=== PATIENT | male | born 1970 | race Caucasian/White ===

== ENCOUNTER 2018-07-05 20:47 | Emergency (ER) | payer MEDICARE, OTHER ==
[~2018-07-05] VITALS: Ht 175.3 cm; Wt 72.6 kg
[2018-07-05 21:55] VITALS: BP 128/84
[2018-07-05] MEDS ORDERED: ACETAMINOPHEN 325 MG TAB PO ONE (22:30)
[2018-07-05] MEDS ORDERED: IBUPROFEN 600 MG TAB PO ONE (22:30)
== END 2018-07-05 23:35 | disposition home or self-care (01) ==
LOC: ER 20:53
DX: S62.394A Other fracture of fourth metacarpal bone, right hand, initial encounter for closed fracture (principal); W22.01XA Walked into wall, initial encounter; Y93.89 Activity, other specified; Y92.098 Other place in other non-institutional residence as the place of occurrence of the external cause; Y99.8 Other external cause status
CPT/HCPCS: 29125; 73130

== ENCOUNTER 2020-10-13 13:33 | Emergency (ER) | payer MEDICARE, OTHER ==
[~2020-10-13] VITALS: Ht 177.8 cm; Wt 63.5 kg
[2020-10-13] MEDS ORDERED: LORazepam 2MG/ML-1ML VIAL IV ONE (14:15)
[2020-10-13 14:18] LABS: Basophils # (auto) 0 10 ^3/uL (0-0.2); Basophils % (auto) 0.5 % (0.0-2.0); Eosinophils # (auto) 0 10 ^3/uL (0-0.8); Eosinophils % (auto) 0.5 % (0.0-7.0); Hematocrit 45.6 % (41.0-53.0); Hemoglobin 16.3 g/dL (13.5-17.5); Lymphocytes # (auto) 1.9 10 ^3/uL (0.4-5.4); Lymphocytes % (auto) 24.6 % (10.0-50.0); Mean Corpuscular Hemoglobin 33.4 pg (28.0-32.0); Mean Corpuscular Hgb Conc. 35.7 g/dL (32.0-36.0); Mean Corpuscular Volume 93.5 fL (80.0-100.0); Monocytes # (auto) 0.6 10 ^3/uL (0-1.3); Monocytes % (auto) 7.2 % (0.0-12.0); Neutrophils # (auto) 5.3 10 ^3/uL (1.6-8.6); Neutrophils % (auto) 67.2 % (37.0-80.0); Nucleated Red Blood Cells % 0.1 %; Platelet Count (auto) 222 10^3/uL (140-450); Red Blood Cells 4.87 10^6/uL (4.5-5.90); Red Cell Distribution Width 12.6 % (11.8-14.3); White Blood Cell 7.9 10^3/uL (4.4-10.8)
[2020-10-13 14:38] LABS: INR 1.08 (0.9-1.15); Partial Thromboplastin Time 27.3 sec (23.0-31.2)
[2020-10-13 14:51] LABS: Albumin 4.4 g/dL (3.4-5.0); Anion Gap 10 (5-15); Blood Urea Nitrogen 13 mg/dL (7-18); Calcium 9.1 mg/dL (8.5-10.1); Carbon Dioxide 23 mmol/L (21-32); Chloride 105 mmol/L (98-107); Glucose 95 mg/dL (74-106); Magnesium 2.3 mg/dL (1.6-2.6); Potassium 3.3 mmol/L (3.5-5.1); Sodium 138 mmol/L (136-145)
[2020-10-13 14:57] LABS: Alanine Aminotransferase 33 U/L (16-61); Alkaline Phosphatase 68 U/L (45-117); Aspartate Aminotransferase 23 U/L (15-37); BUN/Creatinine Ratio 14.9; Bilirubin, Total 1.3 mg/dL (0.2-1.0); GFR African American 120 mL/min; GFR Non-African American 99 mL/min; Total Protein 7.8 g/dL (6.4-8.2)
[2020-10-13] MEDS ORDERED: PREGABALIN 25 MG CAP PO ONE (15:30)
[2020-10-13 16:17] VITALS: BP 115/79
== END 2020-10-13 16:45 | disposition home or self-care (01) ==
LOC: EDBD 13:33 → ER 13:33
DX: F44.9 Dissociative and conversion disorder, unspecified (principal); R07.9 Chest pain, unspecified
CPT/HCPCS: 36415; 71045; 80053; 83735; 83880; 84484; 85025; 85379; 85610; 85730; 96374; 99284; J2060

== ENCOUNTER 2021-02-15 17:38 | Emergency (ER) | payer MEDICARE, OTHER ==
[~2021-02-15] VITALS: Ht 175.3 cm; Wt 72.6 kg
[2021-02-15 17:52] VITALS: BP 130/91
[2021-02-15 18:57] LABS: Urine Bacteria FEW /hpf (None Seen); Urine Blood 3+ /uL (Negative); Urine Mucus FEW (None Seen); Urine WBC 3 /hpf (0 - 3)
[2021-02-15 19:21] LABS: Basophils # (auto) 0.1 10 ^3/uL (0-0.2); Basophils % (auto) 0.7 % (0.0-2.0); Eosinophils # (auto) 0.1 10 ^3/uL (0-0.8); Eosinophils % (auto) 0.8 % (0.0-7.0); Hematocrit 45.3 % (41.0-53.0); Hemoglobin 16.3 g/dL (13.5-17.5); Lymphocytes # (auto) 2.9 10 ^3/uL (0.4-5.4); Lymphocytes % (auto) 36.4 % (10.0-50.0); Mean Corpuscular Hemoglobin 33.9 pg (28.0-32.0); Mean Corpuscular Volume 94.4 fL (80.0-100.0); Monocytes # (auto) 0.6 10 ^3/uL (0-1.3); Monocytes % (auto) 7.8 % (0.0-12.0); Neutrophils # (auto) 4.4 10 ^3/uL (1.6-8.6); Neutrophils % (auto) 54.3 % (37.0-80.0); Nucleated Red Blood Cells % 0.1 %; Red Cell Distribution Width 12.6 % (11.8-14.3)
[2021-02-15 19:41] LABS: Albumin 4.5 g/dL (3.4-5.0); Calcium 8.9 mg/dL (8.5-10.1); Magnesium 2.8 mg/dL (1.6-2.6); Potassium 4.2 mmol/L (3.5-5.1)
[2021-02-15 19:46] LABS: BUN/Creatinine Ratio 16.7; Bilirubin, Total 0.7 mg/dL (0.2-1.0); Total Protein 8.2 g/dL (6.4-8.2)
== END 2021-02-16 01:20 | disposition left against medical advice (07) ==
LOC: ER 17:38
DX: R10.31 Right lower quadrant pain (principal); R11.0 Nausea; R19.7 Diarrhea, unspecified; Z53.21 Procedure and treatment not carried out due to patient leaving prior to being seen by health care provider
CPT/HCPCS: 36415; 80053; 81001; 83735; 85025

== ENCOUNTER 2021-02-27 16:00 | Inpatient (IN) | payer MEDICARE, OTHER ==
[~2021-02-27] VITALS: Ht 175.3 cm; Wt 72.6 kg
[2021-02-27] MEDS ORDERED: ONDANSETRON HCL 4 MG/2 ML VIAL IV ONE (16:15)
[2021-02-27] MEDS ORDERED: SODIUM CHLORIDE 0.9% 1,000 ML IV ONE (16:15)
[2021-02-27] MEDS ORDERED: MORPHINE SULFATE 4 MG/ML SYR/VIAL IV ONE (16:15)
[2021-02-27 17:07] LABS: Basophils # (auto) 0 10 ^3/uL (0-0.2); Basophils % (auto) 0.3 % (0.0-2.0); Eosinophils # (auto) 0.1 10 ^3/uL (0-0.8); Hematocrit 45.3 % (41.0-53.0); Hemoglobin 15.6 g/dL (13.5-17.5); Lymphocytes # (auto) 1.9 10 ^3/uL (0.4-5.4); Lymphocytes % (auto) 19.1 % (10.0-50.0); Mean Corpuscular Hemoglobin 32.2 pg (28.0-32.0); Mean Corpuscular Hgb Conc. 34.4 g/dL (32.0-36.0); Mean Corpuscular Volume 93.6 fL (80.0-100.0); Monocytes # (auto) 0.7 10 ^3/uL (0-1.3); Monocytes % (auto) 7.3 % (0.0-12.0); Neutrophils # (auto) 7.2 10 ^3/uL (1.6-8.6); Neutrophils % (auto) 72.3 % (37.0-80.0); Red Blood Cells 4.84 10^6/uL (4.5-5.90); Red Cell Distribution Width 12.8 % (11.8-14.3)
[2021-02-27 17:18] LABS: Albumin 3.7 g/dL (3.4-5.0); BUN/Creatinine Ratio 14.4; Calcium 8.7 mg/dL (8.5-10.1); Potassium 4.4 mmol/L (3.5-5.1)
[2021-02-27 17:21] LABS: Bilirubin, Total 0.4 mg/dL (0.2-1.0); Total Protein 7.5 g/dL (6.4-8.2)
[2021-02-27] MEDS ORDERED: KETOROLAC TROMETH 30 MG/ML 1ML VIAL IV ONE (17:45)
[2021-02-27] MEDS ORDERED: TAMSULOSIN HYDROCHLORIDE 0.4 MG CAP PO ONE (17:45)
[2021-02-27] MEDS ORDERED: ACETAMINOPHEN 500 MG TAB PO PRN (19:15)
[2021-02-27] MEDS ORDERED: MORPHINE SULFATE INJECTION 2 MG/2 ML SYRG IV PRN (19:15)
[2021-02-27] MEDS ORDERED: NITROGLYCERIN 0.4 MG SL TAB SL PRN (19:15)
[2021-02-27] MEDS ORDERED: HYDROcodone-ACET 5/325MG TAB PO PRN (19:15)
[2021-02-27] MEDS: SODIUM CHLORIDE 0.9% 1,000 ML IV SCH (21:41)
[2021-02-27 22:42] LABS: Urine Bacteria NONE SEEN /hpf (None Seen); Urine Blood 1+ /uL (Negative); Urine Hyaline Cast FEW /lpf (0 - 2); Urine Mucus FEW (None Seen); Urine WBC <1 /hpf (0 - 3)
[2021-02-27] MEDS: CLINDAMYCIN 300MG IV 50 ML IV SCH (23:05)
[2021-02-28] MEDS: SODIUM CHLORIDE 0.9% 1,000 ML IV SCH (03:15)
[2021-02-28] MEDS: MORPHINE SULFATE INJECTION 2 MG/2 ML SYRG IV PRN ×2 (03:48→08:05)
[2021-02-28] MEDS: ONDANSETRON HCL 4 MG/2 ML VIAL IV PRN ×2 (03:48→08:05)
[2021-02-28 05:32] LABS: Basophils # (auto) 0 10 ^3/uL (0-0.2); Basophils % (auto) 0.7 % (0.0-2.0); Eosinophils # (auto) 0.2 10 ^3/uL (0-0.8); Eosinophils % (auto) 3.1 % (0.0-7.0); Hematocrit 40.6 % (41.0-53.0); Hemoglobin 14.5 g/dL (13.5-17.5); Lymphocytes # (auto) 2.3 10 ^3/uL (0.4-5.4); Lymphocytes % (auto) 39.6 % (10.0-50.0); Mean Corpuscular Hemoglobin 33.8 pg (28.0-32.0); Mean Corpuscular Hgb Conc. 35.6 g/dL (32.0-36.0); Mean Corpuscular Volume 94.9 fL (80.0-100.0); Monocytes # (auto) 0.5 10 ^3/uL (0-1.3); Monocytes % (auto) 9.4 % (0.0-12.0); Neutrophils # (auto) 2.7 10 ^3/uL (1.6-8.6); Neutrophils % (auto) 47.2 % (37.0-80.0); Nucleated Red Blood Cells % 0.1 %; Red Blood Cells 4.28 10^6/uL (4.5-5.90); Red Cell Distribution Width 12.9 % (11.8-14.3); White Blood Cell 5.8 10^3/uL (4.4-10.8)
[2021-02-28 06:03] LABS: Potassium 4.2 mmol/L (3.5-5.1)
[2021-02-28 06:11] LABS: BUN/Creatinine Ratio 15.6; Calcium 8.2 mg/dL (8.5-10.1)
[2021-02-28] MEDS: CLINDAMYCIN 300MG IV 50 ML IV SCH (06:27)
[2021-02-28 08:14] VITALS: BP 109/55
[2021-02-28] MEDS ORDERED: cefTRIAXone 1GM/50ML D5W 50 ML IV SCH (09:00)
[2021-02-28] MEDS ORDERED: TAMSULOSIN HYDROCHLORIDE 0.4 MG CAP PO SCH (18:00)
== END 2021-02-28 13:30 | disposition left against medical advice (07) | DRG 694 ==
LOC: ER 16:00 → OVERFLOW 19:14 → WEST WING 02-28 11:16
PROVIDERS: ADMIT Nurse Practitioner Acute Care; ATTEND Internal Medicine Pulmonary Disease
DX: N13.2 Hydronephrosis with renal and ureteral calculous obstruction (principal); L03.115 Cellulitis of right lower limb; Z20.822 Contact with and (suspected) exposure to COVID-19; Z53.29 Procedure and treatment not carried out because of patient's decision for other reasons; E78.5 Hyperlipidemia, unspecified; Z89.612 Acquired absence of left leg above knee
CPT/HCPCS: 36415; 71045; 74176; 80048; 80053; 81001; 83690; 84484; 85025; 87426; 96361; 96365; 96375; G0378; J0696; J1885; J2405; J3490